=== PATIENT | male | born 1960 | race Caucasian/White ===

== ENCOUNTER 2016-10-20 20:04 | Emergency (ER) | payer MEDICARE ==
[~2016-10-20] VITALS: Ht 177.8 cm; Wt 93.2 kg
[~2016-10-20 20:04] MED LIST: BUPR1FIL3 SL; RIZA10TA23 PO
[2016-10-20 20:13] VITALS: BP 144/96; PULSE 114; RESP 18; O2SAT 98
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
[2016-10-20] MEDS ORDERED: SOMA350 PO (21:00)
[2016-10-20] MEDS ORDERED: TRAM50TA2 PO (21:00)
[2016-10-20 21:14] VITALS: BP 140/85; PULSE 101; RESP 18; O2SAT 98
== END 2016-10-20 21:20 | disposition home or self-care (01) ==
LOC: SED 20:04
DX: S39.012D Strain of muscle, fascia and tendon of lower back, subsequent encounter (principal); V89.2XXD Person injured in unspecified motor-vehicle accident, traffic, subsequent encounter; Y93.89 Activity, other specified; Y92.89 Other specified places as the place of occurrence of the external cause; Y99.8 Other external cause status; I10 Essential (primary) hypertension; Z88.8 Allergy status to other drugs, medicaments and biological substances